=== PATIENT | female | born 1970 | race Caucasian/White ===

== ENCOUNTER 2016-09-25 01:27 | Emergency (ER) | payer SELFPAY ==
[2016-09-25 01:47] VITALS: TEMP 98.3
--- NOTE | 2016-09-25 02:23 | C.PDOC ---
History Of Present Illness 45 y/o female complaining of nasal congestion and right ear pain x3 days, after cold symptoms the week prior. Denies any fever, chills, decreased hearing, or other complaints. Time Seen by Provider: 09/25/16 01:52 Chief Complaint (Nursing): ENT Problem History Per: Patient History/Exam Limitations: no limitations Onset/Duration Of Symptoms: Days Current Symptoms Are (Timing): Still Present Location Of Pain: Ear(s) Associated Symptoms: denies: Fever, Chills, Sore Throat, Cough, Sputum, Neck Pain, Sinus Drainage, Myalgias, Nasal Congestion, Nausea, Vomiting, Diarrhea Ear Symptoms: Right: Ear Pain Severity: Mild Past Medical History Vital Signs: Last Vital Signs Temp 98.3 F 09/25/16 01:42 Pulse 84 09/25/16 02:30 Resp 16 09/25/16 02:30 BP 121/75 09/25/16 02:30 Pulse Ox 98 09/25/16 04:02 - Medical History PMH: Kidney Stones Surgical History: Family History: States: Unknown Family Hx - Social History Hx Tobacco Use: No Hx Alcohol Use: No Hx Substance Use: No - Immunization History Hx Tetanus Toxoid Vaccination: Yes Hx Influenza Vaccination: No Hx Pneumococcal Vaccination: No Physical Exam - Physical Exam Appears: Well, Non-toxic, No Acute Distress Skin: Normal Color, Warm, Dry Eye(s): bilateral: Normal Inspection Ear(s): Right: TM Erythema, Other (canal erythema) Nose: Normal, Other (enlarged turbinates) Oral Mucosa: Moist Tongue: Normal Appearing Teeth: Normal Dentition Gingiva: Normal Appearing Throat: Normal, No Erythema, No Exudate Neck: Normal, Supple Chest: Symmetrical, No Deformity Cardiovascular: Rhythm Regular Respiratory: Normal Breath Sounds Gait: Steady ED Course And Treatment O2 Sat by Pulse Oximetry: 98 (RA) Pulse Ox Interpretation: Normal Progress Note: Motrin and Benadryl given. On reevaluation she is feeling better and comfortable going home. Disposition Counseled Patient/Family Regarding: Diagnosis, Need For Followup, Rx Given - Disposition Referrals: [facility] [Outside] Disposition: HOME/ ROUTINE Disposition Time: 02:16 Condition: STABLE Additional Instructions: Increase PO fluids Take meds as directed Continue advil for pain Follow up with PMD or in clinic Return to ER if worse Prescriptions: Amoxicillin/Clavulanate [Augmentin 500 MG-125 MG] 1 tab PO TID #21 tab Ibuprofen [Motrin] 600 mg PO Q6H #30 tab Mometasone Furoate [Nasonex] 2 spray NS DAILY #1 bottle Instructions: Otitis Media (ED), Allergic Rhinitis (ED) Print Language: DIVEHI - Clinical Impression Clinical Impression: Otitis media, Allergic rhinitis - Scribe Statement The provider has reviewed the documentation as recorded by the Scribdanisha Machado
[2016-09-25 02:30] VITALS: BP 121/75; PULSE 84; RESP 16
[2016-09-25 04:02] VITALS: O2SAT 98
== END 2016-09-25 02:30 | disposition home or self-care (01) ==
LOC: C.ER 01:27
DX: H66.91 Otitis media, unspecified, right ear (principal); J30.9 Allergic rhinitis, unspecified

== ENCOUNTER 2016-11-09 14:17 | Emergency (ER) | payer SELFPAY ==
[2016-11-09 14:24] VITALS: BMI 26.6
[2016-11-09] MEDS ORDERED: Morphine 4 MG/ML VIAL ONE (14:33)
[2016-11-09 14:43] LABS: BASO # 0.1 K/uL (0.0-0.2); BASO % 0.7 % (0.0-2.0); EOS % 0.2 % (0.0-4.0); HEMATOCRIT 42.8 % (34.0-47.0); LYMPH # 2.9 K/uL (1.0-4.3); LYMPH % 26.5 % (20.0-40.0); MEAN CELL VOLUME 91.2 fL (81.0-99.0); MEAN CORPUSCULAR HEMOGLOBIN 31.2 pg (27.0-31.0); MEAN CORPUSCULAR HGB CONC 34.2 g/dL (33.0-37.0); MEAN PLATELET VOLUME 9.4 fL (7.2-11.7); MONO # 0.6 K/uL (0.0-0.8); MONO % 5.6 % (0.0-10.0); RED CELL DISTRIBUTION WIDTH 12.6 % (11.5-14.5)
[2016-11-09 14:50] LABS: CHLORIDE 101 mmol/L (98-107)
[2016-11-09 14:51] LABS: POTASSIUM 3.9 mmol/L (3.6-5.2); SODIUM 137 mmol/L (132-148)
[2016-11-09 14:52] LABS: CHOLESTEROL 208 mg/dL (0-199)
[2016-11-09 14:53] LABS: ALB/GLOB RATIO 1.1 (1.0-2.1); ALKALINE PHOSPHATASE 82 U/L (38-126); ALT/SGPT 24 U/L (9-52); AST/SGOT 20 U/L (14-36); BILIRUBIN,TOTAL 0.8 mg/dL (0.2-1.3); BLOOD UREA NITROGEN 12 mg/dL (7-17); CARBON DIOXIDE 25 mmol/L (22-30); GFR AFRICAN-AMERICAN > 60; GLUCOSE,RANDOM 102 mg/dL (65-105); TOTAL PROTEIN 8.1 g/dL (6.3-8.3)
[2016-11-09 14:54] LABS: ALCOHOL SERUM < 10 mg/dl (0-10); CALCIUM 9.2 mg/dl (8.6-10.4)
[2016-11-09 15:00] LABS: INR 1.1
--- NOTE | 2016-11-09 15:01 | CT ---
PROCEDURE: CT HEAD WITHOUT CONTRAST. HISTORY: acute ESCOTO, h/o mitraine, ? SAB COMPARISON: 05/24/2016 TECHNIQUE: Axial computed tomography images were obtained through the head/brain without intravenous contrast. Radiation dose: Total exam DLP = 765.41 mGy-cm. This CT exam was performed using one or more of the following dose reduction techniques: Automated exposure control, adjustment of the mA and/or kV according to patient size, and/or use of iterative reconstruction technique. FINDINGS: HEMORRHAGE: No intracranial hemorrhage. BRAIN: No mass effect or edema. 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 No evidence acute infarct. VENTRICLES: Unremarkable. No hydrocephalus. CALVARIUM: Unremarkable. PARANASAL SINUSES: Unremarkable as visualized. No significant inflammatory changes. MASTOID AIR CELLS: Unremarkable as visualized. No inflammatory changes. OTHER FINDINGS: None. IMPRESSION: No intracranial mass, hemorrhage or evidence of acute infarct. No interval change.
--- NOTE | 2016-11-09 15:50 | C.PDOC ---
History Of Present Illness Patient is a 45 year old female brought to the ER via EMS for a complaint of a left sided headache. Patient states this headache is consistent with prior migraines. Patient is noncompliant with her mediation; she notes ETOH worsens her migraine and reports having 4 cocktails last night. Denies fever, nausea or vomiting. Time Seen by Provider: 11/09/16 14:23 Chief Complaint (Nursing): Headache History Per: Patient History/Exam Limitations: no limitations Onset/Duration Of Symptoms: Hrs Current Symptoms Are (Timing): Still Present Associated Symptoms: denies: Nausea, Vomiting, Other (Fever) Recent travel outside of the [place]: No Past Medical History Reviewed: Historical Data, Nursing Documentation, Vital Signs Vital Signs: Last Vital Signs Temp 98.0 F 11/09/16 16:06 Pulse 75 11/09/16 16:06 Resp 19 11/09/16 16:06 BP 116/67 11/09/16 16:06 Pulse Ox 98 11/09/16 16:06 - Medical History PMH: Kidney Stones Surgical History: Family History: States: Unknown Family Hx - Social History Hx Tobacco Use: No Hx Alcohol Use: No Hx Substance Use: No - Immunization History Hx Tetanus Toxoid Vaccination: Yes Hx Influenza Vaccination: No Hx Pneumococcal Vaccination: No Review Of Systems Constitutional: Negative for: Fever Gastrointestinal: Negative for: Nausea, Vomiting Neurological: Positive for: Headache (Left sided) Physical Exam - Physical Exam Appears: Non-toxic, Other (Moderate distress) Skin: Normal Color, Warm, Dry Head: Atraumatic, Normacephalic Oral Mucosa: Moist Chest: Symmetrical, No Tenderness Cardiovascular: Rhythm Regular, No Murmur Respiratory: Normal Breath Sounds, No Rales, No Rhonchi, No Wheezing Gastrointestinal/Abdominal: Soft, No Tenderness Neurological/Psych: Oriented x3, Normal Speech, Normal Cognition, Other (No focal deficits) ED Course And Treatment - Laboratory Results Result Diagrams: 11/09/16 14:30 11/09/16 14:30 Lab Interpretation: Normal Urine POC: Negative O2 Sat by Pulse Oximetry: 97 (Room air) Pulse Ox Interpretation: Normal Progress Note: EKG, blood work and urinalysis ordered. Toradol, morphine and zofran administered. Medical Decision Making Medical Decision Making: exacerbation of chronic "migraine" headaches, exacerbated by alcohol use last night w/u and head CT neg today improved with morphine/toradol/IVF's Disposition Doctor Will See Patient In The: Office Counseled Patient/Family Regarding: Studies Performed, Diagnosis - Disposition Referrals: [facility] [Outside] Disposition: HOME/ ROUTINE Disposition Time: 16:01 Condition: GOOD Additional Instructions: bridger abuso del alcohol, se [place] los alexis de rachele Sigue en [facility] necessario. Instructions: Acute Headache (ED) Print Language: TURKISH - Clinical Impression Clinical Impression: Headache - Scribe Statement The provider has reviewed the documentation as recorded by the Scribe Uche Burt All medical record entries made by the Scribe were at my direction and personally dictated by me. I have reviewed the chart and agree that the record accurately reflects my personal performance of the history, physical exam, medical decision making, and the department course for this patient. I have also personally directed, reviewed, and agree with the discharge instructions and disposition.
[2016-11-09 16:06] VITALS: BP 116/67; PULSE 75; RESP 19; TEMP 98
--- NOTE | 2016-11-09 17:06 | RAD ---
HISTORY: adm COMPARISON: 05/24/2016 FINDINGS: LUNGS: No active pulmonary disease. PLEURA: No significant pleural effusion identified, no pneumothorax apparent. CARDIOVASCULAR: Normal. OSSEOUS STRUCTURES: No significant abnormalities. VISUALIZED UPPER ABDOMEN: Normal. OTHER FINDINGS: None. IMPRESSION: No active disease.
[2016-11-09 17:36] VITALS: O2SAT 97
--- NOTE | 2016-11-10 10:03 | CARD ---
APPROVED REPORT EKG Measurement Heart [id number] <Conclusion> Normal sinus rhythm Normal ECG
== END 2016-11-09 16:21 | disposition home or self-care (01) ==
LOC: C.ER 14:17
DX: R51 Headache (principal)
CPT/HCPCS: 70450; 71010; 80053; 80061; 80320; 83036; 84484; 84702; 85025; 85610; 85730; 93005; 96374; 96375; 99284; J1885; J2270; J2405

== ENCOUNTER 2017-04-19 13:41 | Emergency (ER) | payer OTHER ==
[2017-04-19 13:43] VITALS: BMI 26.6
--- NOTE | 2017-04-19 14:26 | C.PDOC ---
History Of Present Illness 46 year old female presents to the ED c/o continuous left sided CP radiating to her left arm that started yesterday and is constant. She describes it feeling like a ball in her chest. Patient states she has never experienced this pain before and is not taking any medications for her pain. Patient denies SOB, lightheadedness, dizziness, abdominal pain, weakness, numbness, headache. Time Seen by Provider: 04/19/17 14:18 Chief Complaint (Nursing): Chest Pain History Per: Patient History/Exam Limitations: no limitations Onset/Duration Of Symptoms: Hrs Current Symptoms Are (Timing): Gone Quality: "Pain" Modifying Factors: None Recent travel outside of the [place]: No Additional History Per: Patient Past Medical History Reviewed: Historical Data, Nursing Documentation, Vital Signs Vital Signs: Last Vital Signs Temp 97.9 F 04/19/17 13:45 Pulse 80 04/19/17 13:45 Resp 20 04/19/17 13:45 BP 137/78 04/19/17 13:45 Pulse Ox 97 04/19/17 14:34 - Medical History PMH: Kidney Stones, Chronic Kidney Disease Surgical History: Family History: States: Unknown Family Hx - Social History Hx Tobacco Use: No Hx Alcohol Use: No Hx Substance Use: No - Immunization History Hx Tetanus Toxoid Vaccination: Yes Hx Influenza Vaccination: No Hx Pneumococcal Vaccination: No Review Of Systems Constitutional: Negative for: Fever, Chills Cardiovascular: Positive for: Chest Pain. Negative for: Palpitations Respiratory: Negative for: Cough, Shortness of Breath Gastrointestinal: Negative for: Nausea, Vomiting, Abdominal Pain Musculoskeletal: Positive for: Arm Pain (left arm) Neurological: Negative for: Weakness, Numbness, Headache, Dizziness Physical Exam - Physical Exam Appears: Non-toxic, No Acute Distress Skin: Normal Color, Warm, Dry Head: Atraumatic, Normacephalic Nose: No Discharge Oral Mucosa: Moist Neck: Normal ROM, Supple Chest: Symmetrical, Tenderness (left sternal border) Cardiovascular: Rhythm Regular, No Murmur Respiratory: Normal Breath Sounds, No Rales, No Rhonchi, No Wheezing Gastrointestinal/Abdominal: Soft, No Tenderness, No Guarding, No Rebound Back: No CVA Tenderness Extremity: Normal ROM, No Pedal Edema, No Calf Tenderness, No Swelling Neurological/Psych: Oriented x3, Normal Speech, Normal Cognition Gait: Steady ED Course And Treatment - Laboratory Results Result Diagrams: 04/19/17 15:20 04/19/17 15:20 Lab Interpretation: Normal ECG: Interpreted By Me, Viewed By Me ECG Rhythm: Sinus Rhythm ECG Interpretation: Normal Interpretation Of ECG: EKG NSR 80 BPM with normla axis, normal intervals and no ST or T wave changes. Rate From EC O2 Sat by Pulse Oximetry: 97 Pulse Ox Interpretation: Normal - Radiology CXR: Viewed By Me, Read By Radiologist CXR Interpretation: Yes: No Acute Disease Reevaluation Time: 16:02 Reassessment Condition: Improved (after Motrin po.) Disposition Counseled Patient/Family Regarding: Studies Performed, Diagnosis, Need For Followup - Disposition Referrals: [facility] [employer] [facility] [Outside] Disposition: HOME/ ROUTINE Disposition Time: 16:05 Condition: IMPROVED Instructions: Chest Wall Pain (ED) Forms: [email or web address] (Hebrew) Print Language: TUNISIAN - Clinical Impression Clinical Impression: Chest wall pain - Scribe Statement The provider has reviewed the documentation as recorded by the Scribe Keith Robbins All medical record entries made by the Scribe were at my direction and personally dictated by me. I have reviewed the chart and agree that the record accurately reflects my personal performance of the history, physical exam, medical decision making, and the department course for this patient. I have also personally directed, reviewed, and agree with the discharge instructions and disposition.
[2017-04-19 15:24] LABS: BASO % 0.4 % (0.0-2.0); EOS # 0.1 K/uL (0.0-0.7); EOS % 0.7 % (0.0-4.0); HEMATOCRIT 43.1 % (34.0-47.0); LYMPH # 2.5 K/uL (1.0-4.3); MEAN CELL VOLUME 91.9 fL (81.0-99.0); MEAN CORPUSCULAR HEMOGLOBIN 31.6 pg (27.0-31.0); MEAN CORPUSCULAR HGB CONC 34.4 g/dL (33.0-37.0); MEAN PLATELET VOLUME 9.7 fL (7.2-11.7); MONO # 0.8 K/uL (0.0-0.8); MONO % 7.8 % (0.0-10.0); NRBC % 0.1 % (0.0-2.0); RED CELL DISTRIBUTION WIDTH 13.1 % (11.5-14.5); WHITE BLOOD COUNT 9.9 K/uL (4.8-10.8)
[2017-04-19 15:43] LABS: ALB/GLOB RATIO 1.3 (1.0-2.1); ALKALINE PHOSPHATASE 63 U/L (38-126); ALT/SGPT 33 U/L (9-52); AST/SGOT 22 U/L (14-36); BILIRUBIN,TOTAL 0.6 mg/dL (0.2-1.3); BLOOD UREA NITROGEN 13 mg/dL (7-17); CALCIUM 8.9 mg/dl (8.6-10.4); CARBON DIOXIDE 28 mmol/L (22-30); CHLORIDE 105 mmol/L (98-107); GFR AFRICAN-AMERICAN > 60; GLUCOSE,RANDOM 108 mg/dL (65-105); POTASSIUM 4.2 mmol/L (3.6-5.2); SODIUM 138 mmol/L (132-148)
--- NOTE | 2017-04-19 16:00 | RAD ---
HISTORY: chest pain COMPARISON: Chest x-ray performed 11/09/16 TECHNIQUE: Chest, one view. FINDINGS: LUNGS: No focal consolidation. Please note that chest x-ray has limited sensitivity for the detection of pulmonary masses. PLEURA: No significant pleural effusion identified. No definite pneumothorax . CARDIOVASCULAR: The cardiomediastinal silhouette appears within normal limits of size. OSSEOUS STRUCTURES: No acute osseous abnormality identified. VISUALIZED UPPER ABDOMEN: Unremarkable. OTHER FINDINGS: None. IMPRESSION: No focal consolidation, significant pleural effusion, or definite pneumothorax identified.
[2017-04-19 16:23] VITALS: BP 117/76; PULSE 76; RESP 17; TEMP 97.8; O2SAT 98
--- NOTE | 2017-04-20 23:16 | CARD ---
APPROVED REPORT EKG Measurement Heart [id number] <Conclusion> Normal sinus rhythm Normal ECG
== END 2017-04-19 16:23 | disposition home or self-care (01) ==
LOC: C.ER 13:41
DX: R07.89 Other chest pain (principal)

== ENCOUNTER 2017-06-05 13:33 | Inpatient (IN) | payer SELFPAY ==
[2017-06-05 13:33] VITALS: BMI 26.6
[2017-06-05 14:48] LABS: HCG,QUALITATIVE URINE NEGATIVE (NEGATIVE)
[2017-06-05 15:03] LABS: SQUAMOUS EPITHIAL 14 /hpf (0-5); URINE BILIRUBIN NEGATIVE (NEGATIVE); URINE BLOOD 2+ (NEGATIVE); URINE CLARITY Hazy (Clear); URINE COLOR Yellow (YELLOW); URINE GLUCOSE (UA) NORMAL (Normal); URINE LEUKOCYTE ESTERASE NEG Leu/uL (Negative); URINE NITRATE NEGATIVE (NEGATIVE); URINE PROTEIN NEGATIVE (NEGATIVE); URINE UROBILINOGEN NORMAL mg/dL (0.2-1.0)
[2017-06-05] MEDS ORDERED: Sodium Chloride 0.9% 1,000 ML IV ONE (15:03)
--- NOTE | 2017-06-05 15:03 | C.PDOC ---
History Of Present Illness 46-year-old female, presents to the emergency department with complaints of right-lower quadrant abdominal pain x2 days, that is localized and intermittent in nature, associated with a subjective fever. Denies vomiting, shortness of breath, vomiting, chest pain, or any other associated symptoms. No other complaints at this time. Time Seen by Provider: 06/05/17 14:30 Chief Complaint (Nursing): Abdominal Pain History Per: Patient History/Exam Limitations: no limitations Onset/Duration Of Symptoms: Days Current Symptoms Are (Timing): Still Present Severity: Moderate Location Of Pain/Discomfort: RLQ Past Medical History Reviewed: Historical Data, Nursing Documentation, Vital Signs Vital Signs: Last Vital Signs Temp 98.2 F 06/05/17 15:45 Pulse 72 06/05/17 15:45 Resp 20 06/05/17 15:45 BP 117/74 06/05/17 15:45 Pulse Ox 98 06/05/17 16:37 - Medical History PMH: Kidney Stones, Chronic Kidney Disease Surgical History: Family History: States: No Known Family Hx - Social History Hx Tobacco Use: No Hx Alcohol Use: No Hx Substance Use: No - Immunization History Hx Tetanus Toxoid Vaccination: Yes Hx Influenza Vaccination: No Hx Pneumococcal Vaccination: No Review Of Systems Except As Marked, All Systems Reviewed And Found Negative. Constitutional: Positive for: Fever. Negative for: Chills Cardiovascular: Negative for: Chest Pain, Palpitations Respiratory: Negative for: Shortness of Breath Gastrointestinal: Positive for: Nausea, Abdominal Pain. Negative for: Vomiting Genitourinary: Negative for: Dysuria, Frequency, Vaginal Discharge, Vaginal Bleeding Musculoskeletal: Negative for: Back Pain Neurological: Negative for: Weakness, Numbness, Headache, Dizziness Physical Exam - Physical Exam Appears: Non-toxic, No Acute Distress Skin: Warm, Dry, No Rash Head: Atraumatic, Normacephalic Eye(s): bilateral: Normal Inspection, PERRL Nose: Normal Oral Mucosa: Moist Lips: Normal Appearing Neck: Normal ROM Chest: Symmetrical Cardiovascular: Rhythm Regular, No Murmur Respiratory: Normal Breath Sounds, No Accessory Muscle Use Gastrointestinal/Abdominal: Soft, Tenderness (Mild RLQ ), No Guarding, No Rebound Extremity: Normal ROM Neurological/Psych: Oriented x3, Normal Speech ED Course And Treatment - Laboratory Results Result Diagrams: 06/05/17 15:08 06/05/17 15:08 O2 Sat by Pulse Oximetry: 98 Progress - Re-Evaluation Re-evaluation Note: 06/05/17 16:36 d/w surg resident aware of er findings will eval - Data Reviewed Data Reviewed: Lab, Diagnostic imaging, EKG, Old records - Continuity of Care Discussed patient case with:: Patient, Family-HIPPA compliant Discussed pt. case with trial consultant/specialty: General Surgery Disposition Counseled Patient/Family Regarding: Studies Performed, Diagnosis - Disposition Disposition: HOSPITALIZED Disposition Time: 16:37 Condition: STABLE Forms: [employer] (Sami) - POA Present On Arrival: None - Clinical Impression Clinical Impression: Appendicitis - Scribe Statement The provider has reviewed the documentation as recorded by the Scribe (Pedro Zarate) All medical record entries made by the Scribe were at my direction and personally dictated by me. I have reviewed the chart and agree that the record accurately reflects my personal performance of the history, physical exam, medical decision making, and the department course for this patient. I have also personally directed, reviewed, and agree with the discharge instructions and disposition. Decision To Admit - Pt Status Changed To: Hospital Disposition Of: Inpatient - Admit Certification Admit to Inpatient:: After my assessment, the patient will require hospitalization for at least two midnights. This is because of the severity of symptoms shown, intensity of services needed, and/or the medical risk in this patient being treated as an outpatient. - InPatient: Physician Admission Certification:: SEE NOTE - . Bed Request Type: Regular Admitting Physician: Filippo Victoria Patient Diagnosis: Appendicitis
[2017-06-05] MEDS ORDERED: Morphine 4 MG/ML VIAL ONE (15:09)
[2017-06-05 15:11] LABS: BASO % 0.3 % (0.0-2.0); EOS % 0.3 % (0.0-4.0); HEMOGLOBIN 14.8 g/dL (11.0-16.0); LYMPH # 2.8 K/uL (1.0-4.3); MEAN CELL VOLUME 92.6 fL (81.0-99.0); MEAN CORPUSCULAR HEMOGLOBIN 32.3 pg (27.0-31.0); MEAN CORPUSCULAR HGB CONC 34.9 g/dL (33.0-37.0); MONO # 0.8 K/uL (0.0-0.8); NEUT # 7.8 K/uL (1.8-7.0); NEUT % 68.4 % (50.0-75.0); RBC 4.57 Mil/uL (3.80-5.20); RED CELL DISTRIBUTION WIDTH 12.9 % (11.5-14.5); WHITE BLOOD COUNT 11.5 K/uL (4.8-10.8)
[2017-06-05 15:24] LABS: ALB/GLOB RATIO 1.2 (1.0-2.1); ALT/SGPT 32 U/L (9-52); AST/SGOT 20 U/L (14-36); BLOOD UREA NITROGEN 11 mg/dL (7-17); CALCIUM 9.4 mg/dl (8.6-10.4); GFR AFRICAN-AMERICAN > 60; GFR NON-AFRICAN AMERICAN > 60; LIPASE 109 U/L (23-300)
[2017-06-05] MEDS ORDERED: Iodixanol 320 MG/ML 100 ML BOTTLE IV ONE (15:38)
--- NOTE | 2017-06-05 16:29 | CT ---
PROCEDURE: CT Abdomen and Pelvis with contrast HISTORY: abd pain RLQ COMPARISON: None. TECHNIQUE: Contrast dose: 100 mL Visipaque 320 Radiation dose: Total exam DLP = 849.5 mGy-cm. This CT exam was performed using one or more of the following dose reduction techniques: Automated exposure control, adjustment of the mA and/or kV according to patient size, and/or use of iterative reconstruction technique. FINDINGS: LOWER THORAX: Bibasilar dependent subsegmental atelectasis. LIVER: Multiple cysts/hemangiomas, the largest of which measures 3.1 x 2.8 centimeter. No gross lesion or ductal dilatation. GALLBLADDER AND BILE DUCTS: Unremarkable. PANCREAS: Unremarkable. No gross lesion or ductal dilatation. SPLEEN: Unremarkable. ADRENALS: Unremarkable. No mass. KIDNEYS AND URETERS: Sub centimeter left interpolar cyst. No hydronephrosis. No solid mass. VASCULATURE: Unremarkable. No aortic aneurysm. BOWEL: Unremarkable. No obstruction. No gross mural thickening. APPENDIX: Wall thickening and hyper enhancement of the appendiceal tip with equivocal surrounding inflammatory change. PERITONEUM: Unremarkable. No free fluid. No free air. LYMPH NODES: Unremarkable. No enlarged lymph nodes. BLADDER: Unremarkable. REPRODUCTIVE: Large 5.3 x 5.2 centimeter left ovarian cyst. Intrauterine device in place. BONES: No acute fracture. OTHER FINDINGS: Postsurgical changes in the infraumbilical midline abdominal wall soft tissues. IMPRESSION: Wall thickening and hyper enhancement of the appendiceal tip with equivocal surrounding inflammatory change raises the possibility of tip appendicitis. Clinical correlation is recommended. Findings conveyed to Dr. Carcamo by Dr. Gustafson at 4:25 p.m. on 06/05/2017.
[2017-06-05] MEDS ORDERED: Piperacillin/Tazobact 3.375 gm 100 ML IV STA (16:36)
[2017-06-05] MEDS ORDERED: Piperacill/Tazo 3.375gm in Dex 3.375 GM/50 ML BAG IVPB ONE (17:00)
--- NOTE | 2017-06-05 17:16 | CP.PCM.CON ---
History of Present Illness - History of Present Illness History of Present Illness: General Surgery Note for Dr. Victoria Reason for Consult: RLQ abdominal pain 46 F with no significant PMH presents to [facility] for complaint of RLQ abdominal pain. Patient states that she has this pain for 2 days. She states that pain started when she was at home. She reports sudden onset and states pain has gotten worse over last 2 days. She admits associated nausea. She rates the pain as moderated to severe. She describes the pain as constant and sharp located in RLQ. Patient states that certain movement and palpation exacerbates her pain while nothing alleviates it. Denies fever/chills, chest pain, SOB, vomiting, diarrhea, urinary symptoms. CT abdomen/pelvis was performed and showed wall thickening and hyper-enhancement of the appendiceal tip with equivocal surrounding inflammatory changes. PMH: Headaches Meds: As per EMR Allergy: NKDA PSH: x 3 FH: unknown Social: denies tobacco/EtOH/illicit drug use Review of Systems - Review of Systems All systems: reviewed and no additional remarkable complaints except (as per HPI ) Past Patient History - Infectious Disease Hx of Infectious Diseases: None - Past Social History Smoking Status: Never Smoked - CARDIAC Hx Cardiac Disorders: No - PULMONARY Hx Respiratory Disorders: No - NEUROLOGICAL Hx Neurological Disorder: No - HEENT Hx HEENT Problems: Yes Other/Comment: Hx of headaches - RENAL Hx Chronic Kidney Disease: Yes Hx Kidney Stones: Yes - ENDOCRINE/METABOLIC Hx Endocrine Disorders: No - HEMATOLOGICAL/ONCOLOGICAL Hx Blood Disorders: No - INTEGUMENTARY Hx Dermatological Problems: No - MUSCULOSKELETAL/RHEUMATOLOGICAL Hx Musculoskeletal Disorders: No - GASTROINTESTINAL Hx Gastrointestinal Disorders: No - GENITOURINARY/GYNECOLOGICAL Hx Genitourinary Disorders: No - PSYCHIATRIC Hx Substance Use: No - SURGICAL HISTORY Hx Surgeries: Yes Hx Section: Yes - ANESTHESIA Hx Anesthesia: Yes Hx Anesthesia Reactions: No Meds Allergies/Adverse Reactions: Allergies Allergy/AdvReac Type Severity Reaction Status Date / Time No Known Allergies Allergy Verified 04/19/17 13:50 - Medications Medications: Current Medications Sodium Chloride (Sodium Chloride 0.9%) 1,000 mls @ 250 mls/hr IV .Q4H ONE Stop: 06/05/17 19:02 Last Admin: 06/05/17 15:14 Dose: 250 mls/hr Piperacillin Sod/Tazobactam Sod (Zosyn 3.375 Gm Iv Premix) 3.375 gm in 50 mls @ 100 mls/hr IVPB ONCE ONE Stop: 06/05/17 17:29 Last Admin: 06/05/17 17:04 Dose: 100 mls/hr Physical Exam - Constitutional Appears: No Acute Distress - Head Exam Head Exam: ATRAUMATIC, NORMOCEPHALIC - Eye Exam Eye Exam: EOMI, Normal appearance Pupil Exam: PERRL - ENT Exam ENT Exam: Mucous Membranes Moist - Respiratory Exam Respiratory Exam: NORMAL BREATHING PATTERN - Cardiovascular Exam Cardiovascular Exam: REGULAR RHYTHM - GI/Abdominal Exam GI & Abdominal Exam: Normal Bowel Sounds, Soft, Tenderness (RLQ pain). absent: Distended, Firm, Guarding, Hernia, Rebound, Rigid - Extremities Exam Extremities exam: Positive for: normal capillary refill, pedal pulses present - Back Exam Back exam: absent: CVA tenderness (L), CVA tenderness (R) - Neurological Exam Neurological exam: Alert, CN II-XII Intact, Oriented x3 - Psychiatric Exam Psychiatric exam: Normal Affect, Normal Mood - Skin Skin Exam: Dry, Intact, Normal Color, Warm Results - Vital Signs Recent Vital Signs: Last Vital Signs Temp 98.2 F 06/05/17 15:45 Pulse 72 06/05/17 15:45 Resp 20 06/05/17 15:45 BP 117/74 06/05/17 15:45 Pulse Ox 98 06/05/17 16:37 - Labs Result Diagrams: 06/05/17 15:08 06/05/17 15:08 Labs: Laboratory Results - last 24 hr 06/05/17 06/05/17 06/05/17 14:34 15:08 15:08 WBC 11.5 H RBC 4.57 Hgb 14.8 Hct 42.3 MCV 92.6 MCH 32.3 H MCHC 34.9 RDW 12.9 Plt Count 257 MPV 10.0 Neut % (Auto) 68.4 Lymph % (Auto) 24.0 [place] % (Auto) 7.0 Eos % (Auto) 0.3 Baso % (Auto) 0.3 Neut # 7.8 H Lymph # 2.8 [place] # 0.8 Eos # 0.0 Baso # 0.0 Sodium 133 Potassium 4.0 Chloride 102 Carbon Dioxide 25 Anion Gap 10 BUN 11 Creatinine 0.5 L Est GFR ( Amer) > 60 Est GFR (Non-Af Amer) > 60 Random Glucose 87 Calcium 9.4 Total Bilirubin 0.7 AST 20 ALT 32 Alkaline Phosphatase 60 Total Protein 7.5 Albumin 4.0 Globulin 3.5 Albumin/Globulin Ratio 1.2 Lipase 109 Urine Color Yellow Urine Clarity Hazy Urine pH 8.0 Ur Specific [place] 1.019 Urine Protein Negative Urine Glucose (UA) Normal Urine Ketones Negative Urine Blood 2+ H Urine Nitrate Negative Urine Bilirubin Negative Urine Urobilinogen Normal Ur Leukocyte Esterase Neg Urine WBC (Auto) 1 Urine RBC (Auto) 18 H Ur Squamous Epith Cells 14 H Urine HCG, Qual Negative Assessment & Plan - Assessment and Plan (Free Text) Plan: 46 F presents for RLQ abdominal pain; CT suggestive of tip appendicitis -NPO -IV fluids -IV antibiotics -Analgesics/Anti-emetics PRN -GI/DVT ppx -Will discuss with Dr. Esme Rodriguez PGY1
[2017-06-05] MEDS: Sodium Chloride 0.9% 1,000 ML IV SCH (17:30)
[2017-06-05] MEDS ORDERED: Sodium Chloride 0.9% 1,000 ML IV SCH (17:30)
--- NOTE | 2017-06-05 19:26 | CP.PCM.HP ---
History of Present Illness - History of Present Illness History of Present Illness: General Surgery Note for Dr. Victoria Reason for Consult: RLQ abdominal pain 46 F with no significant PMH presents to [facility] for complaint of RLQ abdominal pain. Patient states that she has this pain for 2 days. She states that pain started when she was at home. She reports sudden onset and states pain has gotten worse over last 2 days. She admits associated nausea. She rates the pain as moderated to severe. She describes the pain as constant and sharp located in RLQ. Patient states that certain movement and palpation exacerbates her pain while nothing alleviates it. Denies fever/chills, chest pain, SOB, vomiting, diarrhea, urinary symptoms. CT abdomen/pelvis was performed and showed wall thickening and hyper-enhancement of the appendiceal tip with equivocal surrounding inflammatory changes. PMH: Headaches Meds: As per EMR Allergy: NKDA PSH: x 3 FH: unknown Social: denies tobacco/EtOH/illicit drug use Present on Admission - Present on Admission Any Indicators Present on Admission: No History of DVT/PE: No History of Uncontrolled Diabetes: No Urinary Catheter: No Decubitus Ulcer Present: No Review of Systems - Review of Systems All systems: reviewed and no additional remarkable complaints except (as per HPI ) Past Patient History - Infectious Disease Hx of Infectious Diseases: None - Past Social History Smoking Status: Never Smoked - CARDIAC Hx Cardiac Disorders: No - PULMONARY Hx Respiratory Disorders: No - NEUROLOGICAL Hx Neurological Disorder: No - HEENT Hx HEENT Problems: Yes Other/Comment: Hx of headaches - RENAL Hx Chronic Kidney Disease: Yes Hx Kidney Stones: Yes - ENDOCRINE/METABOLIC Hx Endocrine Disorders: No - HEMATOLOGICAL/ONCOLOGICAL Hx Blood Disorders: No - INTEGUMENTARY Hx Dermatological Problems: No - MUSCULOSKELETAL/RHEUMATOLOGICAL Hx Musculoskeletal Disorders: No - GASTROINTESTINAL Hx Gastrointestinal Disorders: No - GENITOURINARY/GYNECOLOGICAL Hx Genitourinary Disorders: No - PSYCHIATRIC Hx Substance Use: No - SURGICAL HISTORY Hx Surgeries: Yes Hx Section: Yes - ANESTHESIA Hx Anesthesia: Yes Hx Anesthesia Reactions: No Meds Allergies/Adverse Reactions: Allergies Allergy/AdvReac Type Severity Reaction Status Date / Time No Known Allergies Allergy Verified 04/19/17 13:50 Physical Exam - Constitutional Appears: Non-toxic, No Acute Distress - Head Exam Head Exam: ATRAUMATIC, NORMOCEPHALIC - Eye Exam Eye Exam: EOMI, Normal appearance Pupil Exam: PERRL - ENT Exam ENT Exam: Mucous Membranes Moist - Respiratory Exam Respiratory Exam: NORMAL BREATHING PATTERN - Cardiovascular Exam Cardiovascular Exam: REGULAR RHYTHM - GI/Abdominal Exam GI & Abdominal Exam: Normal Bowel Sounds, Soft, Tenderness (RLQ). absent: Distended, Firm, Rebound, Rigid Additional comments: (+) McBurney's point (-) Rovsing sign (-) obturator sign - Extremities Exam Extremities exam: Positive for: normal capillary refill, normal inspection, pedal pulses present - Back Exam Back exam: absent: CVA tenderness (L), CVA tenderness (R) - Neurological Exam Neurological exam: Alert, CN II-XII Intact, Oriented x3 - Psychiatric Exam Psychiatric exam: Normal Affect, Normal Mood - Skin Skin Exam: Dry, Intact, Normal Color, Warm Results - Vital Signs Recent Vital Signs: Last Vital Signs Temp 97.9 F 06/05/17 19:00 Pulse 83 06/05/17 19:00 Resp 17 06/05/17 19:00 BP 130/82 06/05/17 19:00 Pulse Ox 97 06/05/17 19:00 - Labs Result Diagrams: 06/05/17 15:08 06/05/17 15:08 Labs: Laboratory Results - last 24 hr 06/05/17 06/05/17 06/05/17 14:34 15:08 15:08 WBC 11.5 H RBC 4.57 Hgb 14.8 Hct 42.3 MCV 92.6 MCH 32.3 H MCHC 34.9 RDW 12.9 Plt Count 257 MPV 10.0 Neut % (Auto) 68.4 Lymph % (Auto) 24.0 Gulf % (Auto) 7.0 Eos % (Auto) 0.3 Baso % (Auto) 0.3 Neut # 7.8 H Lymph # 2.8 Gulf # 0.8 Eos # 0.0 Baso # 0.0 Sodium 133 Potassium 4.0 Chloride 102 Carbon Dioxide 25 Anion Gap 10 BUN 11 Creatinine 0.5 L Est GFR ( Amer) > 60 Est GFR (Non-Af Amer) > 60 Random Glucose 87 Calcium 9.4 Total Bilirubin 0.7 AST 20 ALT 32 Alkaline Phosphatase 60 Total Protein 7.5 Albumin 4.0 Globulin 3.5 Albumin/Globulin Ratio 1.2 Lipase 109 Urine Color Yellow Urine Clarity Hazy Urine pH 8.0 Ur Specific [place] 1.019 Urine Protein Negative Urine Glucose (UA) Normal Urine Ketones Negative Urine Blood 2+ H Urine Nitrate Negative Urine Bilirubin Negative Urine Urobilinogen Normal Ur Leukocyte Esterase Neg Urine WBC (Auto) 1 Urine RBC (Auto) 18 H Ur Squamous Epith Cells 14 H Urine HCG, Qual Negative Assessment & Plan - Assessment and Plan (Free Text) Plan: 46 F presents for RLQ abdominal pain; CT suggestive of tip appendicitis -NPO -OR tomorrow for appendectomy -IV fluids -IV antibiotics -Analgesics/Anti-emetics PRN -GI/DVT ppx -Will discuss with Dr. Esme Rodriguez PGY1 - Date & Time Date: 06/05/17 Time: 17:00
[2017-06-05] MEDS: Piperacill/Tazo 3.375gm in Dex 3.375 GM/50 ML BAG IVPB SCH (22:32)
[2017-06-05] MEDS ORDERED: Piperacillin/Tazobact 3.375 GM in Sodium Chloride 100 ML IVPB SCH (23:00)
[2017-06-06] MEDS: Sodium Chloride 0.9% 1,000 ML IV SCH ×3 (02:01→17:17)
[2017-06-06] MEDS: Piperacill/Tazo 3.375gm in Dex 3.375 GM/50 ML BAG IVPB SCH ×4 (05:01→23:04)
[2017-06-06 07:38] LABS: BASO # 0.1 K/uL (0.0-0.2); BASO % 0.4 % (0.0-2.0); EOS # 0.1 K/uL (0.0-0.7); EOS % 0.6 % (0.0-4.0); HEMOGLOBIN 13.9 g/dL (11.0-16.0); LYMPH # 2.6 K/uL (1.0-4.3); LYMPH % 19.3 % (20.0-40.0); MEAN CELL VOLUME 92.9 fL (81.0-99.0); MEAN CORPUSCULAR HGB CONC 34.4 g/dL (33.0-37.0); MEAN PLATELET VOLUME 9.4 fL (7.2-11.7); MONO # 0.8 K/uL (0.0-0.8); MONO % 5.8 % (0.0-10.0); NEUT # 9.9 K/uL (1.8-7.0); NEUT % 73.9 % (50.0-75.0); RBC 4.34 Mil/uL (3.80-5.20); RED CELL DISTRIBUTION WIDTH 12.9 % (11.5-14.5); WHITE BLOOD COUNT 13.4 K/uL (4.8-10.8)
[2017-06-06 07:40] LABS: INR 1.1; PROTHROMBIN TIME 11.8 SECONDS (9.7-12.2)
[2017-06-06 08:18] LABS: ALB/GLOB RATIO 1.1 (1.0-2.1); ALBUMIN 3.4 g/dL (3.5-5.0); ALT/SGPT 24 U/L (9-52); AST/SGOT 19 U/L (14-36); BLOOD UREA NITROGEN 10 mg/dL (7-17); CALCIUM 8.4 mg/dl (8.6-10.4); GFR AFRICAN-AMERICAN > 60; GFR NON-AFRICAN AMERICAN > 60
--- NOTE | 2017-06-06 08:43 | RAD ---
HISTORY: pre op eval COMPARISON: 04/19/2017 FINDINGS: LUNGS: No active pulmonary disease. PLEURA: No significant pleural effusion identified, no pneumothorax apparent. CARDIOVASCULAR: Normal. OSSEOUS STRUCTURES: No significant abnormalities. VISUALIZED UPPER ABDOMEN: Normal. OTHER FINDINGS: None. IMPRESSION: No active disease.
[2017-06-06] MEDS ORDERED: Influenza Vaccine 60 mcg/0.5 mL SYR (4YR UP) IM ONE (10:00)
[2017-06-06] MEDS ORDERED: Pneumococcal 23-Valent Vaccine IM ONE (10:00)
[2017-06-06] MEDS ORDERED: Bupivacaine-Epi 0.5%-1:200,000 PF Inj IJ ONE (13:22)
[2017-06-06] MEDS ORDERED: HYDROmorphone 0.5 mg/0.5 ml ISec IVP PRN (13:46)
[2017-06-06] MEDS ORDERED: Propofol 10 mg/ml Inj (20 ML) ONE (13:54)
[2017-06-06] MEDS ORDERED: Midazolam 2 MG/2 ML VIAL ONE (13:54)
[2017-06-06] MEDS ORDERED: Lactated Ringer's 1,000 ML IV ONE (13:57)
[2017-06-06] MEDS ORDERED: Esmolol 100 mg/10ml Inj IV ONE (14:24)
[2017-06-06] MEDS ORDERED: Neostigmine Methylsulfate 3mg/3ml Syringe IV ONE (14:40)
--- NOTE | 2017-06-06 15:08 | PCM.SURG1 ---
Surgeon's Initial Post Op Note - Surgeon's Notes Surgeon: Dr. Victoria Pie Icer Machine: Nelsy Newman PGY2 Type of Anesthesia: General Endo Pre-Operative Diagnosis: appendicitis Operative Findings: Imflammed appy, large L ovarian cyst Post-Operative Diagnosis: SAme Operation Performed: Lap appy, L ovarian cyst drainage Specimen/Specimens Removed: appendix Estimated Blood Loss: EBL {In ML}: 10 Blood Products Given: N/A Drains Used: No Drains Post-Op Condition: Good Date of Surgery/Procedure: 06/06/17 Time of Surgery/Procedure: 15:07
[2017-06-06] MEDS: Oxycodone/Acetaminophen 5/325 mg Tab PO PRN ×2 (16:50→23:06)
[2017-06-06] MEDS ORDERED: HYDROmorphone 1 mg/ml ISec IVP PRN (17:05)
[2017-06-07] MEDS: Sodium Chloride 0.9% 1,000 ML IV SCH (02:01)
[2017-06-07] MEDS: Piperacill/Tazo 3.375gm in Dex 3.375 GM/50 ML BAG IVPB SCH ×4 (04:02→22:11)
[2017-06-07 08:44] LABS: HEMOGLOBIN 13.4 g/dL (11.0-16.0); MEAN CORPUSCULAR HGB CONC 34.5 g/dL (33.0-37.0); MEAN PLATELET VOLUME 9.5 fL (7.2-11.7); RBC 4.18 Mil/uL (3.80-5.20); RED CELL DISTRIBUTION WIDTH 12.6 % (11.5-14.5); WHITE BLOOD COUNT 14.8 K/uL (4.8-10.8)
[2017-06-07 09:01] LABS: ALBUMIN 3.3 g/dL (3.5-5.0); ALT/SGPT 25 U/L (9-52); AST/SGOT 22 U/L (14-36); BLOOD UREA NITROGEN 8 mg/dL (7-17); CALCIUM 8.2 mg/dl (8.6-10.4); GFR AFRICAN-AMERICAN > 60; GFR NON-AFRICAN AMERICAN > 60
[2017-06-07 09:04] LABS: ALB/GLOB RATIO 1.1 (1.0-2.1)
--- NOTE | 2017-06-07 09:09 | CP.PCM.PN ---
Subjective - Date & Time of Evaluation Date of Evaluation: 06/07/17 Time of Evaluation: 09:06 - Subjective Subjective: Surgery Pt s&e. Underwent surgery yesterday. Tolerated it well. Denies F/C/N/V/D/CP/ SOB. Tolerating diet. Pain controlled. Objective - Vital Signs/Intake and Output Vital Signs (last 24 hours): Temp Pulse Resp BP Pulse Ox 98.3 F 78 20 116/65 97 06/07/17 07:44 06/07/17 07:44 06/07/17 07:44 06/07/17 07:44 06/07/17 07:44 Intake and Output: 06/07/17 06/07/17 06:59 18:59 Intake Total 1350 Balance 1350 - Medications Medications: Current Medications Hydromorphone HCl (Dilaudid) 1 mg IVP Q4H PRN PRN Reason: Pain, severe (8-10) Last Admin: 06/06/17 18:14 Dose: 1 mg Piperacillin Sod/Tazobactam Sod (Zosyn 3.375 Gm Iv Premix) 3.375 gm in 50 mls @ 100 mls/hr IVPB Q6H [facility] Last Admin: 06/07/17 04:02 Dose: 100 mls/hr Sodium Chloride (Sodium Chloride 0.9%) 1,000 mls @ 125 mls/hr IV .Q8H [facility] Last Admin: 06/07/17 02:01 Dose: 125 mls/hr Ondansetron HCl (Zofran Inj) 4 mg IVP Q4H PRN PRN Reason: Nausea/Vomiting Oxycodone/Acetaminophen (Percocet 5/325 Mg Tab) 2 tab PO Q4H PRN PRN Reason: Pain, Mild (1-3) Stop: 06/09/17 15:10 Last Admin: 06/06/17 23:06 Dose: 2 tab Pantoprazole Sodium (Protonix Inj) 40 mg IVP DAILY [facility] Last Admin: 06/06/17 11:22 Dose: 40 mg Pneumococcal Polyvalent Vaccine (Pneumovax 23 Vaccine) 0.5 ml IM .ONCE ONE Stop: 06/08/17 10:01 - Labs Labs: 06/07/17 08:19 06/07/17 08:19 PT 11.8 SECONDS (9.7-12.2) 06/06/17 07:23 INR 1.1 06/06/17 07:23 APTT 29 SECONDS (21-34) 06/06/17 07:23 - Constitutional Appears: No Acute Distress - Head Exam Head Exam: ATRAUMATIC, NORMAL INSPECTION, NORMOCEPHALIC - Eye Exam Eye Exam: EOMI, Normal appearance, PERRL Pupil Exam: NORMAL ACCOMODATION, PERRL - ENT Exam ENT Exam: Mucous Membranes Moist, Normal Exam - Neck Exam Neck Exam: Full ROM, Normal Inspection. absent: Lymphadenopathy - Respiratory Exam Respiratory Exam: Clear to Ausculation Bilateral, NORMAL BREATHING PATTERN - Cardiovascular Exam Cardiovascular Exam: REGULAR RHYTHM, +S1, +S2. absent: Murmur - GI/Abdominal Exam GI & Abdominal Exam: Soft, Tenderness, Normal Bowel Sounds. absent: Distended Additional comments: Incision C/D/I - Extremities Exam Extremities Exam: Full ROM, Normal Inspection - Back Exam Back Exam: NORMAL INSPECTION - Neurological Exam Neurological Exam: Alert, Awake, CN II-XII Intact, Normal Gait, Oriented x3 - Psychiatric Exam Psychiatric exam: Normal Affect, Normal Mood - Skin Skin Exam: Dry, Intact, Normal Color, Warm Assessment and Plan - Assessment and Plan (Free Text) Assessment: POD 1 s/p appy Leukocytosis 15 -ABX -REg -pain control DW Dr. Victoria
[2017-06-07] MEDS: Oxycodone/Acetaminophen 5/325 mg Tab PO PRN (17:29)
--- NOTE | 2017-06-07 21:28 | OP ---
PROCEDURE DATE: 06/06/2017 PREOPERATIVE DIAGNOSIS: Acute appendicitis. POSTOPERATIVE DIAGNOSES: Acute appendicitis, left ovarian cyst. PROCEDURE PERFORMED: Laparoscopic appendectomy and evacuation of fluid from the left ovarian cyst. FINDINGS: There is mild inflammatory reaction found on the appendix; however, in the pelvis, there is a large left ovarian cyst filled with some serous fluid. No solid elements were noted in the cyst. There were adhesions noted in the midline below the umbilicus. The right ovary was within normal limits. SURGEON: Filippo Victoria MD DESCRIPTION OF PROCEDURE: Under general anesthesia, patient was prepared and draped in the usual sterile fashion. CO2 was insufflated through a Veress needle inserted above the umbilicus. A 12 mm trocar was inserted about 2 inches above the umbilicus, and under direct vision, a 5-mm left lower quadrant port and a suprapubic 5-mm port were inserted. The left ovary was punctured and fluid evacuated. Attention was focused on the right lower quadrant where the appendix was noted. Base of the appendix was transected with the aid of the AutoSuture model Endo PEPE with blue angela and the mesoappendix was treated with the white angela. The appendix with the meso was placed in the EndoCatch and was then extracted through the umbilical port. Check for bleeding was done, and none was found. CO2 allowed to escape from the peritoneal cavity, trocars were removed, and the wound closed in a routine fashion. Estimated blood loss was about 5 mL. No complications. Filippo Victoria MD
[2017-06-08] MEDS: Piperacill/Tazo 3.375gm in Dex 3.375 GM/50 ML BAG IVPB SCH ×2 (04:15→11:41)
[2017-06-08 06:24] LABS: MEAN CELL VOLUME 92.9 fL (81.0-99.0); MEAN CORPUSCULAR HEMOGLOBIN 32.5 pg (27.0-31.0); MEAN PLATELET VOLUME 9.6 fL (7.2-11.7); RBC 4.32 Mil/uL (3.80-5.20); RED CELL DISTRIBUTION WIDTH 12.7 % (11.5-14.5)
[2017-06-08 07:29] VITALS: BP 116/70; PULSE 82; RESP 20; TEMP 97.9; O2SAT 96
[2017-06-08] MEDS ORDERED: Pneumococcal 23-Valent Vaccine IM ONE (10:00)
--- NOTE | 2017-06-11 21:04 | CARD ---
APPROVED REPORT EKG Measurement Heart [id number] <Conclusion> Normal sinus rhythm Incomplete right bundle branch block Septal infarct, age undetermined Abnormal ECG
== END 2017-06-08 12:59 | disposition home or self-care (01) | DRG 883 ==
LOC: C.ER 13:33 → C.9E 17:50 → C.3T 18:37
PROVIDERS: ADMIT Surgery; ATTEND Surgery
PROC: 0U914ZZ Drainage of Left Ovary, Percutaneous Endoscopic Approach (ICD-10-PCS; 2017-06-05)
PROC: 0DTJ4ZZ Resection of Appendix, Percutaneous Endoscopic Approach (ICD-10-PCS; principal; 2017-06-06 12:44)
PROC: 3E0234Z Introduction of Serum, Toxoid and Vaccine into Muscle, Percutaneous Approach (ICD-10-PCS; 2017-06-08)
DX: K35.80 Unspecified acute appendicitis (principal); N83.202 Unspecified ovarian cyst, left side; Z68.23 Body mass index [BMI] 23.0-23.9, adult; Z23 Encounter for immunization

== ENCOUNTER 2017-06-08 23:50 | Emergency (ER) | payer SELFPAY ==
[2017-06-08 23:51] VITALS: BMI 26.6
[2017-06-09] MEDS ORDERED: Oxycodone/Acetaminophen 5/325 mg Tab PO STA (03:53)
[2017-06-09] MEDS ORDERED: Oxycodone/Acetaminophen 5/325 mg Tab ONE (04:03)
--- NOTE | 2017-06-09 04:46 | C.PDOC ---
History Of Present Illness 46 year old female presents to ED with complaints of an upper extremity problem since earlier today and was discharged today after a laparoscopic appendectomy. Patient states that upon discharge, she agreed to receive the pneumococcal vaccine in her left deltoid. Notes pain, warmth, and swelling to the area. Denies all other complaints. Time Seen by Provider: 06/09/17 01:03 Chief Complaint (Nursing): Upper Extremity Problem/Injury History Per: Patient History/Exam Limitations: no limitations Onset/Duration Of Symptoms: Hrs (earlier today) Current Symptoms Are (Timing): Still Present Quality: "Pain" Past Medical History Reviewed: Historical Data, Nursing Documentation, Vital Signs Vital Signs: Last Vital Signs Temp 99.3 F 06/09/17 03:34 Pulse 94 H 06/09/17 03:34 Resp 20 06/09/17 03:34 BP 133/81 06/09/17 03:34 Pulse Ox 98 06/09/17 04:46 - Medical History PMH: Kidney Stones, Chronic Kidney Disease Surgical History: Appendectomy (laparoscopic), Family History: States: Unknown Family Hx - Social History Hx Tobacco Use: No Hx Alcohol Use: No Hx Substance Use: No - Immunization History Hx Tetanus Toxoid Vaccination: Yes Hx Influenza Vaccination: No Hx Pneumococcal Vaccination: No Review Of Systems Except As Marked, All Systems Reviewed And Found Negative. Gastrointestinal: Negative for: Abdominal Pain Musculoskeletal: Positive for: Arm Pain (pain, warmth, and erythema to left deltoid) Physical Exam - Physical Exam Appears: No Acute Distress Skin: Normal Color, Warm, Dry Eye(s): bilateral: Normal Inspection, PERRL, EOMI Neck: Normal Chest: Symmetrical Cardiovascular: Rhythm Regular Respiratory: Normal Breath Sounds, No Rhonchi Gastrointestinal/Abdominal: Normal Exam, Soft, No Tenderness Extremity: Normal ROM, Swelling (warmth and swelling to left deltoid) Neurological/Psych: Oriented x3, Normal Sensation ED Course And Treatment O2 Sat by Pulse Oximetry: 98 (RA) Pulse Ox Interpretation: Normal Medical Decision Making Medical Decision Makin Initial plan: Percocet and Naproxen given for pain. Patient advised that reaction is a side effect of vaccine. Will monitor to see improvement in pain. 1304 Upon re-evaluation, patient notes improvement in symptoms and is stable for discharge home. Disposition Counseled Patient/Family Regarding: Diagnosis, Need For Followup - Disposition Referrals: [facility] at [facility] [place] [Outside] [facility] at [facility] [Outside] [facility] at [place] [Outside] Disposition: HOME/ ROUTINE Disposition Time: 04:44 Condition: STABLE Additional Instructions: return if symptoms worsen Instructions: Arm Pain (ED) Forms: [facility] (Uzbek) - Clinical Impression Clinical Impression: Arm pain, musculoskeletal - Scribe Statement Antionette Gonzalez Provider Attestation: Scribe Attestation: Documented by Antionette Gonzalez acting as a scribe for Spring Crowe MD. Scribe Attestation: All medical record entries made by the Scribe were at my direction and personally dictated by me. I have reviewed the chart and agree that the record accurately reflects my personal performance of the history, physical exam, medical decision making, and the department course for this patient. I have also personally directed, reviewed, and agree with the discharge instructions and disposition.
[2017-06-09 05:16] VITALS: BP 126/68; PULSE 81; RESP 18; TEMP 98.1; O2SAT 97
== END 2017-06-09 05:16 | disposition home or self-care (01) ==
LOC: C.ER 23:50
DX: M79.602 Pain in left arm (principal)

== ENCOUNTER 2017-07-12 11:50 | Emergency (ER) | payer SELFPAY ==
[2017-07-12 11:50] VITALS: BMI 26.6
[2017-07-12] MEDS ORDERED: Sodium Chloride 0.9% 1,000 ML IV ONE (12:51)
--- NOTE | 2017-07-12 12:56 | C.PDOC ---
History Of Present Illness 46 year old female, whose PMHx includes Migraines, presents to the ED for evaluation of a headache which began at around 0800 this morning. Patient reports waking up with a headache to the top of her head. Patient took two 25mg tablets of Indocin without relief. Patient also reports mild nausea and had one episode of vomiting upon ED arrival. Patient reports symptoms do not feel typical of her usual migraine headaches. Patient states symptoms have gradually worsened since onset and denies fever, chills, neck stiffness, photophobia, or head trauma. Time Seen by Provider: 07/12/17 12:18 Chief Complaint (Nursing): Headache History Per: Patient History/Exam Limitations: no limitations Onset/Duration Of Symptoms: Hrs Current Symptoms Are (Timing): Worse Quality: Aching Preceeding Symptoms: denies: Visual Disturbances Associated Symptoms: Nausea, Vomiting. denies: Photophobia Additional History Per: Patient Past Medical History Reviewed: Historical Data, Nursing Documentation, Vital Signs Vital Signs: Last Vital Signs Temp 98.4 F 07/12/17 16:07 Pulse 71 07/12/17 16:07 Resp 16 07/12/17 16:07 BP 136/84 07/12/17 16:07 Pulse Ox 99 07/12/17 19:25 - Medical History PMH: Kidney Stones, Migraine, Chronic Kidney Disease Surgical History: Appendectomy (laparoscopic), - [facility] Procedures DRAINAGE OF LEFT OVARY, PERCUTANEOUS ENDOSCOPIC APPROACH (06/05/17) INTRODUCTION OF SERUM/TOX/VACCINE INTO MUSCLE, PERC APPROACH (06/05/17) RESECTION OF APPENDIX, PERCUTANEOUS ENDOSCOPIC APPROACH (06/05/17) Family History: States: Unknown Family Hx - Social History Hx Tobacco Use: No Hx Alcohol Use: No Hx Substance Use: No - Immunization History Hx Tetanus Toxoid Vaccination: Yes Hx Influenza Vaccination: No Hx Pneumococcal Vaccination: No Review Of Systems Constitutional: Negative for: Fever, Chills Eyes: Negative for: Other (photophobia ) Gastrointestinal: Positive for: Nausea, Vomiting Musculoskeletal: Negative for: Other (neck stiffness) Neurological: Positive for: Headache Physical Exam - Physical Exam Appears: Non-toxic, Other (uncomfortable, tearful ) Skin: Normal Color, Warm, Dry Head: Atraumatic, Normacephalic Eye(s): bilateral: Normal Inspection, PERRL, EOMI Oral Mucosa: Moist Neck: Supple Chest: Symmetrical, No Deformity, No Tenderness Cardiovascular: Rhythm Regular, No Murmur Respiratory: Normal Breath Sounds, No Rales, No Rhonchi, No Wheezing Extremity: Normal ROM, Capillary Refill (less than 2 seconds ) Neurological/Psych: Oriented x3, Normal Speech, Normal Cognition, Normal Cranial Nerves, Normal Motor, Normal Sensation Gait: Steady ED Course And Treatment O2 Sat by Pulse Oximetry: 99 (on RA) Pulse Ox Interpretation: Normal - CT Scan/US CT Head Other Rad Studies (CT/US): Interpreted By Me, Read By Radiologist, Radiology Report Reviewed CT/US Interpretation: PROCEDURE: CT HEAD WITHOUT CONTRAST. HISTORY: Persistent headache. History of migraines. COMPARISON: 11/09/2016. TECHNIQUE : Axial computed tomography images were obtained through the head/brain without intravenous contrast. Radiation dose: Total exam DLP = seven hundred seventy-four mGy-cm. This CT exam was performed using one or more of the following dose reduction techniques: Automated exposure control, adjustment of the mA and/or kV according to patient size, and/or use of iterative reconstruction technique. FINDINGS: HEMORRHAGE: No intracranial hemorrhage. BRAIN: No mass effect or edema. No atrophy or chronic microvascular ischemic changes. Punctate hypodensity seen in the left caudate head and left basal ganglia suggestive for punctate lacunar infarcts, likely chronic. VENTRICLES: Unremarkable. No hydrocephalus. CALVARIUM: Unremarkable. PARANASAL SINUSES: Unremarkable as visualized. No significant inflammatory changes. MASTOID AIR CELLS: Unremarkable as visualized. No inflammatory changes. OTHER FINDINGS: None. IMPRESSION: No acute intracranial abnormality. Punctate probable chronic lacunar infarcts in the left caudate head and basal ganglia. If headache persists, consider MRI. Medical Decision Making Medical Decision Making: Progress: CT Head ordered and reviewed. Reglan IVP and IV Fluids administered. pt was feeling much better after iv reglan and tylenol, and wants to go home, will d/c with f/u in with neurologist. Disposition Counseled Patient/Family Regarding: Studies Performed, Diagnosis, Need For Followup - Disposition Referrals: Isidoro Wong MD [Staff Provider] - Disposition: HOME/ ROUTINE Disposition Time: 15:37 Condition: GOOD Additional Instructions: Por favor, rosaura un seguimiento con el Dr. Wong de Neurology en los prximos d as. [place] Indocin para el dolor de rachele segn lo prescrito. Por favor, mantenga un diario de dolor de rachele para mostrarle al Dr. Wong. Regrese a la wayne de emergencias por cualquier sntoma peor. Please follow up with Dr Wong from Neurology in the next few days. Take Indocin for headache as prescribed. Please keep headache diary to show Dr Wong. Return to ER for any worse symptoms. Forms: Gen Discharge Inst Finnish, [facility] (Finnish) Print Language: YI - Clinical Impression Clinical Impression: Headache - PA / METAL BONDER / Resident Statement MD/DO has reviewed & agrees with the documentation as recorded. - Scribe Statement The provider has reviewed the documentation as recorded by the Scribe (Brianna Jimenez) All medical record entries made by the Scribe were at my direction and personally dictated by me. I have reviewed the chart and agree that the record accurately reflects my personal performance of the history, physical exam, medical decision making, and the department course for this patient. I have also personally directed, reviewed, and agree with the discharge instructions and disposition.
[2017-07-12] MEDS ORDERED: Sodium Chloride 0.9% 1,000 ML ONE (13:01)
--- NOTE | 2017-07-12 14:17 | CT ---
PROCEDURE: CT HEAD WITHOUT CONTRAST. HISTORY: Persistent headache. History of migraines. COMPARISON: 11/09/2016 TECHNIQUE: Axial computed tomography images were obtained through the head/brain without intravenous contrast. Radiation dose: Total exam DLP = seven hundred seventy-four mGy-cm. This CT exam was performed using one or more of the following dose reduction techniques: Automated exposure control, adjustment of the mA and/or kV according to patient size, and/or use of iterative reconstruction technique. FINDINGS: HEMORRHAGE: No intracranial hemorrhage. BRAIN: No mass effect or edema. No atrophy or chronic microvascular ischemic changes. Punctate hypodensity seen in the left caudate head and left basal ganglia suggestive for punctate lacunar infarcts, likely chronic. VENTRICLES: Unremarkable. No hydrocephalus. CALVARIUM: Unremarkable. PARANASAL SINUSES: Unremarkable as visualized. No significant inflammatory changes. MASTOID AIR CELLS: Unremarkable as visualized. No inflammatory changes. OTHER FINDINGS: None. IMPRESSION: No acute intracranial abnormality. Punctate probable chronic lacunar infarcts in the left caudate head and basal ganglia. If headache persists, consider MRI.
[2017-07-12 14:28] VITALS: RESP 16
[2017-07-12 16:08] VITALS: BP 136/84; PULSE 71; TEMP 98.4
[2017-07-12 19:25] VITALS: O2SAT 99
== END 2017-07-12 16:07 | disposition home or self-care (01) ==
LOC: C.ER 11:50
DX: G43.909 Migraine, unspecified, not intractable, without status migrainosus (principal)
CPT/HCPCS: 70450; 96361; 96374; 99285; J2765; J7040

== ENCOUNTER 2017-10-01 08:40 | Emergency (ER) | payer SELFPAY ==
[2017-10-01 08:40] VITALS: BMI 26.6
[2017-10-01 08:46] VITALS: BP 119/78; PULSE 84; RESP 18; TEMP 98.2; O2SAT 97
--- NOTE | 2017-10-01 09:43 | C.PDOC ---
Time Seen by Provider: 10/01/17 09:06 Chief Complaint (Nursing): Cough, Cold, Congestion History Per: Patient Onset/Duration Of Symptoms: Days (about 3 weeks) Current Symptoms Are (Timing): Still Present Associated Symptoms: Sore Throat, Cough, Nasal Congestion Severity: Moderate Additional History Per: Prior Records Past Medical History Reviewed: Historical Data, Nursing Documentation, Vital Signs Vital Signs: Last Vital Signs Temp 98.2 F 10/01/17 08:43 Pulse 84 10/01/17 08:43 Resp 18 10/01/17 08:43 BP 119/78 10/01/17 08:43 Pulse Ox 97 10/01/17 08:43 - Medical History PMH: Kidney Stones, Migraine, Chronic Kidney Disease Surgical History: Appendectomy (laparoscopic), - [facility] Procedures DRAINAGE OF LEFT OVARY, PERCUTANEOUS ENDOSCOPIC APPROACH (06/05/17) INTRODUCTION OF SERUM/TOX/VACCINE INTO MUSCLE, PERC APPROACH (06/05/17) RESECTION OF APPENDIX, PERCUTANEOUS ENDOSCOPIC APPROACH (06/05/17) Family History: States: Unknown Family Hx - Social History Hx Tobacco Use: No Hx Alcohol Use: No Hx Substance Use: No - Immunization History Hx Tetanus Toxoid Vaccination: Yes Hx Influenza Vaccination: No Hx Pneumococcal Vaccination: No Review Of Systems Except As Marked, All Systems Reviewed And Found Negative. Constitutional: Negative for: Weakness Eyes: Positive for: Conjunctivae Inflammation ENT: Positive for: Nose Congestion (sneezing) Respiratory: Positive for: Cough. Negative for: Shortness of Breath Gastrointestinal: Negative for: Vomiting, Abdominal Pain Musculoskeletal: Negative for: Neck Pain Skin: Negative for: Rash Neurological: Negative for: Weakness, Numbness Physical Exam - Physical Exam Appears: Non-toxic, No Acute Distress Skin: Normal Color, Warm, Dry, No Rash Head: Atraumatic, Normacephalic Eye(s): bilateral: PERRL, EOMI, Other (conjunctival injection) Throat: Normal Neck: Normal ROM, Supple Cardiovascular: Rhythm Regular Respiratory: Normal Breath Sounds, No Accessory Muscle Use Gastrointestinal/Abdominal: Soft, No Tenderness Extremity: Normal ROM Neurological/Psych: Oriented x3, Normal Speech, Normal Motor, Normal Sensation ED Course And Treatment O2 Sat by Pulse Oximetry: 97 Pulse Ox Interpretation: Normal Disposition Counseled Patient/Family Regarding: Diagnosis, Need For Followup, Rx Given - Disposition Referrals: [facility] at [facility] [Outside] Disposition: HOME/ ROUTINE Disposition Time: 09:43 Condition: STABLE Additional Instructions: Follow up with your doctor or in the clinic. Return to the ER if you develop shortness of breath, worsening of symptoms or if you have any other concerns. Prescriptions: Fluticasone Nasal [Flonase] 2 spr NS DAILY #1 bottle Ketotifen Fumarate 1 drop OP BID PRN #1 marge PRN Reason: Itching / Pruritus Loratadine [Claritin] 10 mg PO DAILY #30 tab Instructions: Seasonal Allergies (DC) Print Language: BELARUSIAN - Clinical Impression Clinical Impression: Seasonal allergies
== END 2017-10-01 09:48 | disposition home or self-care (01) ==
LOC: C.ER 08:40
DX: J30.2 Other seasonal allergic rhinitis (principal)

== ENCOUNTER 2017-12-04 09:15 | Emergency (ER) | payer SELFPAY ==
[2017-12-04 09:15] VITALS: BMI 26.6
[2017-12-04 09:24] VITALS: RESP 16; TEMP 98
[2017-12-04] MEDS ORDERED: Lidocaine 5% Patch TD STA (09:25)
[2017-12-04] MEDS ORDERED: Lidocaine 5% Patch TD ONE (09:32)
[2017-12-04 10:17] VITALS: BP 123/79; PULSE 73; O2SAT 98
--- NOTE | 2017-12-04 10:52 | C.PDOC ---
History Of Present Illness 46-year-old female, presents to the emergency department with complaints of right lower back pain, that radiates down her right buttock and leg. Patient denies any injury, numbness/weakness, nausea/vomiting, or any other associated symptoms. No other complaints at this time. Time Seen by Provider: 12/04/17 09:19 Chief Complaint (Nursing): Back Pain History Per: Patient History/Exam Limitations: no limitations Past Medical History Reviewed: Historical Data, Nursing Documentation, Vital Signs Vital Signs: Last Vital Signs Temp 98 F 12/04/17 09:21 Pulse 73 12/04/17 10:17 Resp 16 12/04/17 10:17 BP 123/79 12/04/17 10:17 Pulse Ox 98 12/04/17 12:00 - Medical History PMH: Kidney Stones, Migraine, Chronic Kidney Disease Surgical History: Appendectomy (laparoscopic), - [facility] Procedures DRAINAGE OF LEFT OVARY, PERCUTANEOUS ENDOSCOPIC APPROACH (06/05/17) INTRODUCTION OF SERUM/TOX/VACCINE INTO MUSCLE, PERC APPROACH (06/05/17) RESECTION OF APPENDIX, PERCUTANEOUS ENDOSCOPIC APPROACH (06/05/17) Family History: States: No Known Family Hx - Social History Hx Tobacco Use: No Hx Alcohol Use: No Hx Substance Use: No - Immunization History Hx Tetanus Toxoid Vaccination: Yes Hx Influenza Vaccination: No Hx Pneumococcal Vaccination: No Review Of Systems Constitutional: Negative for: Fever Respiratory: Negative for: Shortness of Breath Musculoskeletal: Positive for: Back Pain, Leg Pain Neurological: Negative for: Weakness, Numbness Physical Exam - Physical Exam Appears: Non-toxic, No Acute Distress Skin: Normal Color, Warm, Dry, No Rash Head: Atraumatic, Normacephalic Eye(s): bilateral: Normal Inspection Nose: Normal Oral Mucosa: Moist Lips: Normal Appearing Neck: Normal ROM Cardiovascular: Rhythm Regular, No Murmur Respiratory: Normal Breath Sounds, No Accessory Muscle Use Gastrointestinal/Abdominal: Soft, No Tenderness Back: Paraspinal Tenderness (right, lumbar) Extremity: Normal ROM, Tenderness (right buttock), No Deformity, No Swelling Neurological/Psych: Oriented x3, Normal Speech ED Course And Treatment O2 Sat by Pulse Oximetry: 98 (RA) Pulse Ox Interpretation: Normal Disposition Counseled Patient/Family Regarding: Diagnosis, Need For Followup, Rx Given - Disposition Referrals: [facility] [Outside] Disposition: HOME/ ROUTINE Disposition Time: 10:51 Condition: STABLE Prescriptions: diaZEpam [Valium] 5 mg PO TID #12 tab Ibuprofen [Motrin] 600 mg PO TID #15 tab Instructions: Sciatica Forms: [facility] (Azeri), Gen Discharge Inst Azeri - Clinical Impression Clinical Impression: Low back pain - Scribe Statement The provider has reviewed the documentation as recorded by the Scribe (Pedro Zarate) All medical record entries made by the Scribe were at my direction and personally dictated by me. I have reviewed the chart and agree that the record accurately reflects my personal performance of the history, physical exam, medical decision making, and the department course for this patient. I have also personally directed, reviewed, and agree with the discharge instructions and disposition.
== END 2017-12-04 10:59 | disposition home or self-care (01) ==
LOC: C.ER 09:15
DX: M54.5 Low back pain (principal)

== ENCOUNTER 2018-07-06 09:53 | Outpatient (CLI) | payer SELFPAY | END 2018-07-06 09:54 | disposition home or self-care (01) | LOC: C.LAB 09:53 ==

== ENCOUNTER 2018-07-09 09:59 | Outpatient (CLI) | payer SELFPAY | END 2018-07-09 10:00 | disposition home or self-care (01) | LOC: C.CTH 09:59 | DX: J32.9 Chronic sinusitis, unspecified (principal) ==

== ENCOUNTER 2018-08-18 01:17 | Emergency (ER) | payer SELFPAY ==
[2018-08-18 01:18] VITALS: BMI 24.7
[2018-08-18 01:27] VITALS: O2SAT 97
--- NOTE | 2018-08-18 02:13 | C.PDOC ---
History Of Present Illness 47 year old female with PMHx of migraine presents to the ED c/o frontal headache radiating to her bilateral jaw area. Patient reports she took Excedrin with no relief to symptoms. Patient also reports associated photophobia and nausea, not worse headache of her life, no thunderclap appearance. Patient states she sees Dr. Wong for her headaches, had a CT scan done last year which was normal Patient denies fever, chills, URI symptoms, SOB, cough, rash, weakness, numbness. Time Seen by Provider: 08/18/18 01:29 Chief Complaint (Nursing): Headache History Per: Patient History/Exam Limitations: no limitations Onset/Duration Of Symptoms: Hrs Current Symptoms Are (Timing): Still Present Quality: "Pain" Preceeding Symptoms: Known Migraine Symptoms Associated Symptoms: Photophobia, Nausea Recent travel outside of the [place]: No Additional History Per: Patient Past Medical History Reviewed: Historical Data, Nursing Documentation, Vital Signs Vital Signs: Last Vital Signs Temp 98.7 F 08/18/18 01:20 Pulse 82 08/18/18 01:20 Resp 22 08/18/18 01:20 BP 138/87 08/18/18 01:20 Pulse Ox 97 08/18/18 01:20 - Medical History PMH: Kidney Stones, Migraine (under dr wong's care neurology), Chronic Kidney Disease Surgical History: Appendectomy (laparoscopic), - [facility] Procedures DRAINAGE OF LEFT OVARY, PERCUTANEOUS ENDOSCOPIC APPROACH (06/05/17) INTRODUCTION OF SERUM/TOX/VACCINE INTO MUSCLE, PERC APPROACH (06/05/17) RESECTION OF APPENDIX, PERCUTANEOUS ENDOSCOPIC APPROACH (06/05/17) Family History: States: Unknown Family Hx - Social History Hx Tobacco Use: No Hx Alcohol Use: No Hx Substance Use: No - Immunization History Hx Tetanus Toxoid Vaccination: Yes Hx Influenza Vaccination: No Hx Pneumococcal Vaccination: No Review Of Systems Constitutional: Negative for: Fever, Chills Eyes: Positive for: Vision Change Cardiovascular: Negative for: Chest Pain, Palpitations Respiratory: Negative for: Shortness of Breath Gastrointestinal: Positive for: Nausea. Negative for: Vomiting, Abdominal Pain Musculoskeletal: Negative for: Neck Pain Skin: Negative for: Rash Neurological: Positive for: Headache. Negative for: Weakness, Numbness, Dizziness Physical Exam - Physical Exam Appears: Non-toxic, No Acute Distress Skin: Normal Color, Warm, Dry Head: Atraumatic, Normacephalic Eye(s): bilateral: Normal Inspection, PERRL, EOMI Oral Mucosa: Moist Neck: Normal ROM, No Midline Cervical Tenderness, Supple, Other (No meningeal signs) Chest: Symmetrical Cardiovascular: Rhythm Regular Respiratory: Normal Breath Sounds, No Rales, No Rhonchi, No Wheezing Gastrointestinal/Abdominal: Soft, No Tenderness, No Guarding, No Rebound Extremity: Normal ROM, No Tenderness, No Swelling Neurological/Psych: Oriented x3, Normal Speech, Normal Cognition Gait: Steady ED Course And Treatment O2 Sat by Pulse Oximetry: 97 (ON RA) Pulse Ox Interpretation: Normal Progress Note: Plan: - Toradol 30 mg IVP. - reglan 10 mg IVP. On reassessment, patient is resting comfortably, is tolerating PO, and pain has improved. Patient has no neurologic deficit, photophobia, rash, fever, or nuchal rigidity. Patient was instructed to follow up with physician/clinic in 1-2 days Disposition Counseled Patient/Family Regarding: Diagnosis, Need For Followup, Rx Given - Disposition Referrals: Isidoro Wong MD [Staff Provider] - Disposition: HOME/ ROUTINE Disposition Time: 04:38 Condition: STABLE Additional Instructions: Please follow up with PMD Take medications as directed Return to ER if worse Prescriptions: Acetaminophen/Butalbital/Caf [Fioricet] 1 - 2 tab PO TID PRN #20 tab PRN Reason: Headache Instructions: Migraine Headache (DC) Forms: [employer] ([employer]) Print Language: HUNGARIAN - Clinical Impression Clinical Impression: Headache - 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 - Scribe Statement The provider has reviewed the documentation as recorded by the Scribe Keith Robbins All medical record entries made by the Scribe were at my direction and personally dictated by me. I have reviewed the chart and agree that the record accurately reflects my personal performance of the history, physical exam, medical decision making, and the department course for this patient. I have also personally directed, reviewed, and agree with the discharge instructions and disposition.
[2018-08-18 05:32] VITALS: BP 128/68; PULSE 73; RESP 20; TEMP 98
== END 2018-08-18 05:31 | disposition home or self-care (01) ==
LOC: C.ER 01:17
DX: R51 Headache (principal)
CPT/HCPCS: 96374; 96375; 99284; J1885; J2765

== ENCOUNTER 2018-09-19 23:17 | Emergency (ER) | payer SELFPAY ==
[2018-09-19 23:17] VITALS: BMI 24.7
[2018-09-20 00:11] VITALS: RESP 20
[2018-09-20] MEDS ORDERED: Albuterol 0.083% Inhal Sol (2.5 mg/3 mL) UD ONE (00:54)
[2018-09-20] MEDS ORDERED: Albuterol 0.083% Inhal Sol (2.5 mg/3 mL) UD INH STA (00:57)
[2018-09-20] MEDS ORDERED: Promethazine/Cod 6.25mg-10mg/5ml Syr UD PO STA (01:14)
[2018-09-20] MEDS ORDERED: Promethazine/Cod 6.25mg-10mg/5ml Syr UD ONE (01:33)
--- NOTE | 2018-09-20 01:46 | C.PDOC ---
History Of Present Illness 47-year-old female presents to the ED for evaluation of cough and chest congestion for two days. Patient reports noticing some blood-streaked sputum earlier today. Patient also reports temperature of 100.5 at home. She denies shortness of breath, nausea, vomiting. Time Seen by Provider: 09/20/18 00:22 Chief Complaint (Nursing): Cough, Cold, Congestion History Per: Patient History/Exam Limitations: no limitations Onset/Duration Of Symptoms: Days (2) Current Symptoms Are (Timing): Still Present Associated Symptoms: Fever, Cough, Sputum, Other (chest congestion ). denies: Nausea, Vomiting Additional History Per: Patient Past Medical History Reviewed: Historical Data, Nursing Documentation, Vital Signs Vital Signs: Last Vital Signs Temp 99.2 F 09/20/18 00:04 Pulse 100 H 09/20/18 00:04 Resp 20 09/20/18 00:04 BP 128/75 09/20/18 00:04 Pulse Ox 97 09/20/18 00:04 Primary Care Provider: FAMILY PROVIDER,NO - Medical History PMH: Kidney Stones, Migraine (under dr warren's care neurology), Chronic Kidney Disease Surgical History: Appendectomy (laparoscopic), - [facility] Procedures DRAINAGE OF LEFT OVARY, PERCUTANEOUS ENDOSCOPIC APPROACH (06/05/17) INTRODUCTION OF SERUM/TOX/VACCINE INTO MUSCLE, PERC APPROACH (06/05/17) RESECTION OF APPENDIX, PERCUTANEOUS ENDOSCOPIC APPROACH (06/05/17) Family History: States: Unknown Family Hx - Social History Hx Tobacco Use: No Hx Alcohol Use: No Hx Substance Use: No - Immunization History Hx Tetanus Toxoid Vaccination: Yes Hx Influenza Vaccination: No Hx Pneumococcal Vaccination: No Review Of Systems Constitutional: Positive for: Fever Respiratory: Positive for: Cough, Sputum (blood-streaked ), Other (chest congestion ) Gastrointestinal: Negative for: Nausea, Vomiting Physical Exam - Physical Exam Appears: Non-toxic, No Acute Distress Skin: Normal Color, Warm, Dry Head: Atraumatic, Normacephalic Eye(s): bilateral: Normal Inspection Ear(s): Bilateral: Normal Nose: Other (congestion noted ) Oral Mucosa: Moist Throat: Normal, No Erythema, No Exudate Neck: Supple Chest: Symmetrical, No Deformity, No Tenderness Cardiovascular: Rhythm Regular, No Murmur Respiratory: No Rales, Rhonchi ((+)), No Wheezing, Other (no retractions ) Extremity: Normal ROM, Capillary Refill (less than 2 seconds ) Neurological/Psych: Oriented x3, Normal Speech, Normal Cognition ED Course And Treatment O2 Sat by Pulse Oximetry: 97 Pulse Ox Interpretation: Normal Progress Note: CXR ordered and reviewed, results show no infiltrates. Albuterol INH, Prednisone PO, and Promethazine/Codeine PO given. On reassessment, patient is resting comfortably, showing no signs of distress and reports an improvement in her symptoms. Patient is advised to follow up with her PMD within 1-2 days for further evaluation. Reassessment Condition: Improved Disposition Counseled Patient/Family Regarding: Diagnosis, Need For Followup, Rx Given - Disposition Disposition: HOME/ ROUTINE Disposition Time: 01:43 Condition: STABLE Additional Instructions: Bibi liquido, no mucho leche Bibi todas las medicinas Sigue en clinica Regresa si peor Prescriptions: Benzonatate [Tessalon Perles] 200 mg PO TID #14 sgl Cetirizine HCl [Zyrtec] 10 mg PO DAILY #20 capsule Ibuprofen [Motrin] 600 mg PO Q6H #30 tab predniSONE [Prednisone] 40 mg PO DAILY #10 tab Instructions: Viral Upper Respiratory Infection, Adult (DC) Forms: [employer] (Frisian), Work Excuse Print Language: GRENADIAN - Clinical Impression Clinical Impression: Upper respiratory infection - 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 - Scribe Statement The provider has reviewed the documentation as recorded by the Scribe (Brianna Jimenez) All medical record entries made by the Scribe were at my direction and personally dictated by me. I have reviewed the chart and agree that the record accurately reflects my personal performance of the history, physical exam, medical decision making, and the department course for this patient. I have also personally directed, reviewed, and agree with the discharge instructions and disposition.
[2018-09-20 02:12] VITALS: BP 138/64; PULSE 80; TEMP 98.7
[2018-09-20 03:13] VITALS: O2SAT 97
--- NOTE | 2018-09-20 09:28 | RAD ---
Chest x-ray two views HISTORY: Cough. COMPARISON: 11/09/2016 FINDINGS: No focal infiltrate or effusion. Heart size within normal limits. Osseous structures are grossly preserved. Please note a portion of the trachea and left lung apex is not well evaluated given suboptimal technique. Repeat study may be helpful. IMPRESSION: No focal infiltrate or effusion.
== END 2018-09-20 02:11 | disposition home or self-care (01) ==
LOC: C.ER 23:17
DX: J06.9 Acute upper respiratory infection, unspecified (principal)